=== PATIENT | female | born 1925 | race Caucasian/White ===

== ENCOUNTER 2016-04-25 12:01 | Inpatient (IN) | payer MEDICARE, OTHER ==
[2016-04-25] MEDS ORDERED: DEXTROSE 50%-WATER 25 GM/50 ML DISP.SYRIN IV ONE (12:28)
[2016-04-25 12:46] LABS: HEMATOCRIT 35.4 % (36.0-47.0); HGB HCT DIFFERENCE 0.6; MEAN CORPUSCULAR VOLUME 85 fl (80-97); RED BLOOD COUNT 4.15 10^6/uL (3.72-5.28); RED CELL DISTRIBUTION WIDTH 13.8 % (11.5-14.0); WHITE BLOOD COUNT 6.5 10^3/uL (4.0-10.5)
[2016-04-25 13:07] LABS: ALANINE AMINOTRANSFERASE 28 U/L (9-52); ALBUMIN 3.4 g/dL (3.5-5.0); ALKALINE PHOSPHATASE 57 U/L (38-126); ANION GAP 12 (5-19); ASPARTATE AMINO TRANSFERASE 22 U/L (14-36); BILIRUBIN,TOTAL 0.6 mg/dL (0.2-1.3); BLOOD UREA NITROGEN 9 mg/dL (7-20); CARBON DIOXIDE 28 mmol/L (22-30); CHLORIDE 99 mmol/L (98-107); CREATINE KINASE 21 U/L (30-135); CREATININE RESULT 0.56 mg/dL (0.52-1.25); GLUCOSE 49 mg/dL (75-110); POTASSIUM 3.2 mmol/L (3.6-5.0); SODIUM 138.7 mmol/L (137-145); TOTAL PROTEIN 6.2 g/dL (6.3-8.2)
[2016-04-25 13:08] LABS: BASOPHILS % (MANUAL) 0 % (0-2); EOSINOPHILS % (MANUAL) 1 % (0-6); LYMPHOCYTES % (MANUAL) 3 % (13-45); TOTAL CELLS COUNTED 100
[2016-04-25 13:10] LABS: POLYCHROMASIA SLIGHT; TOXIC GRANULATION 1+; TOXIC VACUOLATION PRESENT
[2016-04-25 13:11] LABS: BAND NEUTROPHILS % (MANUAL) 13 % (3-5)
[2016-04-25 13:25] LABS: TROPONIN I < 0.012 ng/mL
[2016-04-25] MEDS ORDERED: NORMAL SALINE 1000 ML 1,000 ML IV ONE ×2 (14:10)
--- NOTE | 2016-04-25 14:10 | ER Document Report ---
ED General - General Chief Complaint: Low Blood Sugar Stated Complaint: ALTERED MENTAL STATUS Mode of Arrival: Ambulatory Information source: Patient, Relative, Emergency Med Personnel Notes: 89 yr ood paco with hx of diabetes and dementia presents with concerns of hypoglycemi,a pt found by family at 23 this morning, dropped to 10 by the time EMS evaluated, pt given amp dextrose , went ot 110 and then droppped to 60s i [facility] ED. pt has not been eating at all over the past 1 month per family. notes to have abd distension over the past 2 weeks , seen before for this concern, - HPI Onset: Just prior to arrival Onset/Duration: Sudden Quality of pain: Cramping Severity: Mild Pain Level: 1 Associated symptoms: Diarrhea, Nausea, Vomiting - pt vomtiied mutliple times otday Past Medical History - Social History Smoking Status: Never Smoker Cigarette use (# per day): No Chew tobacco use (# tins/day): No Smoking Education Provided: No Family History: Reviewed & Not Pertinent - Past Medical History Cardiac Medical History: Reports: Hx Hypercholesterolemia Pulmonary Medical History: Reports: Hx COPD Endocrine Medical History: Reports: Hx Diabetes Mellitus Type 1 Surgical Hx: Negative Physical Exam - Vital signs Vitals: Temp Pulse Resp BP Pulse Ox 100.2 F 89 18 118/40 L 94 04/25/16 12:10 04/25/16 12:10 04/25/16 12:10 04/25/16 12:10 04/25/16 12:10 Course - Re-evaluation Re-evalutation: 04/25/16 15:49 Initial concern is obviously for hypoglycemia, but appears to be secondary to decreased appetite and significant vomiting, patient after receiving D50 , initial x-ray was concerning for obstruction which would be consistent with the patient's vomiting and abdominal distention did have an NG tube placed. 04/25/16 15:50 Repeat x-ray pending at this time patient will be admitted to hospitalist service with surgical consult was already at bedside - Vital Signs Vital signs: Temp Pulse Resp BP Pulse Ox 100.2 F 89 18 118/40 L 94 04/25/16 12:10 04/25/16 12:10 04/25/16 12:10 04/25/16 12:10 04/25/16 12:10 - Laboratory Result Diagrams: 04/25/16 12:33 04/25/16 12:33 Laboratory results interpreted by me: 04/25/16 04/25/16 04/25/16 12:19 12:33 12:33 Hct 35.4 L Plt Count 642 H Band Neutrophils % 13 H Lymphocytes % (Manual) 3 L Abs Lymphs (Manual) 0.3 L Potassium 3.2 L Glucose 49 L POC Glucose 66 L Lactic Acid Creatine Kinase 21 L Total Protein 6.2 L Albumin 3.4 L Urine Glucose (UA) Urine Ketones Ur Leukocyte Esterase 04/25/16 04/25/16 04/25/16 12:57 13:48 13:55 Hct Plt Count Band Neutrophils % Lymphocytes % (Manual) Abs Lymphs (Manual) Potassium Glucose POC Glucose 359 H Lactic Acid 3.0 H Creatine Kinase Total Protein Albumin Urine Glucose (UA) >=500 H Urine Ketones TRACE H Ur Leukocyte Esterase TRACE H - Diagnostic Test Radiology reviewed: Image reviewed, Reports reviewed Critical Care Note - Critical Care Note Total time excluding time spent on procedures (mins): 37 Comments: 37 minutes of critical care time spent in direct contact evaluating and reevaluating the patient, treating symptoms, reviewing labs and studies and speaking with family and consultants excluding any procedures Discharge - Discharge Clinical Impression: Partial obstruction of small intestine, Severe diabetic hypoglycemia Abdominal pain Qualifiers: Abdominal location: generalized Qualified Code(s): R10.84 - Generalized abdominal pain Condition: Stable Disposition: ADMITTED INPATIENT Admitting Provider: Hospitalist Unit Admitted: Telemetry Referrals: RADHA GARCIA MD [Primary Care Provider] - Follow up as needed
[2016-04-25 14:22] LABS: APPEARANCE,URINE CLEAR; BILIRUBIN,URINE NEGATIVE (NEGATIVE); GLUCOSE, URINE >=500 mg/dL (NEGATIVE); KETONES,URINE TRACE mg/dL (NEGATIVE); LEUKOCYTE ESTERASE,URINE TRACE (NEGATIVE); NITRITE,URINE NEGATIVE (NEGATIVE); PROTEIN,URINE NEGATIVE (NEGATIVE); UROBILINOGEN,URINE NEGATIVE mg/dL (<2.0)
[2016-04-25] MEDS ORDERED: ERTAPENEM SODIUM INJ 1 GM VIAL IV ONE (16:27)
[2016-04-25] MEDS ORDERED: DEXTROSE 5%-1/2 NORMAL SALINE 1,000 ML IV PRN (16:30)
[2016-04-25] MEDS ORDERED: ACETAMINOPHEN 650 MG SUPP.RECT PR PRN (16:34)
[2016-04-25] MEDS ORDERED: MORPHINE SULFATE 10 MG/ML INJ IV PRN ×2 (16:40→21:29)
[2016-04-25] MEDS ORDERED: DEXTROSE 50%-WATER 25 GM/50 ML DISP.SYRIN IV PRN ×2 (16:41)
[2016-04-25] MEDS ORDERED: DEXTROSE 40% GEL 15 GM TUBE PO PRN ×2 (16:41)
[2016-04-25] MEDS ORDERED: GLUCAGON,HUMAN RECOMB 1 MG INJ IM PRN (16:41)
[2016-04-25] MEDS ORDERED: PHENOL/SODIUM PHENOLATE 100 SPRAY/177 ML BOTTLE PO PRN (16:41)
[2016-04-25] MEDS ORDERED: NORMAL SALINE 1000 ML 2,000 ML IV ONE (17:30)
[2016-04-25] MEDS: ONDANSETRON HCL INJ/PF 4 MG/2 ML SDV IV PRN (19:31)
[2016-04-25] MEDS ORDERED: IPRATROPIUM/ALBUTEROL 0.5-2.5 MG/3 ML AMPUL NEB PRN (19:32)
--- NOTE | 2016-04-25 19:52 | PDOC H&P ---
History of Present Illness Admission Date/PCP: 04/25/16 16:34 RADHA GARCIA History of Present Illness: AFSANEH BYNUM is a 89 year old female with a history of diabetes mellitus and dementia who is accompanied by her to the emergency department. Patient was brought in for low blood sugar and was found to have a blood sugar in the 20s which responded to dextrose but then promptly dropped. Patient has apparently not been eating well over the past month. Patient has also been per her vomiting everything that she's eaten. She was hospitalized in [place] for 8 or 9 days he reports for small bowel obstruction. He reports after going home she still had a fever of up to 102, nausea vomiting, and unable to take by mouth. Patient's continued to give her her normal insulin. Patient's also reports that her stools have been black until a couple of days ago and are now a brown liquid. He is unable to provide me much more in the way of history. Patient is referred to the hospitalist service for sepsis. Past Medical History Cardiac Medical History: Reports: Hyperlipidema Pulmonary Medical History: Reports: Chronic Obstructive Pulmonary Disease (COPD) Endocrine Medical History: Reports: Diabetes Mellitus Type 1 Hematology: Reports: Anemia Past Surgical History Past Surgical History: Reports: Cholecystectomy, Hysterectomy Social History Smoking Status: Never Smoker Last Time Smoked: patient does not smoke she does dip socially per family Frequency of Alcohol Use: None Hx Recreational Drug Use: No Hx Prescription Drug Abuse: No - Advance Directive Resuscitation Status: Do Not Resuscitate Surrogate healthcare decision maker:: , HARSH Bynum Family History Family History: Malignancy Parental Family History Reviewed: Yes Children Family History Reviewed: Yes Sibling(s) Family History Reviewed.: Yes Medication/Allergy Home Medications: Atorvastatin Calcium [Lipitor 40 mg Tablet] 40 mg PO QHS 04/25/16 Ferrous Sulfate [Iron] 325 mg PO BID 04/25/16 Fluticasone/Salmeterol [Advair 250-50 Diskus 28 dose] 1 inh IH Q12 04/25/16 Hum Insulin NPH/Reg Insulin Hm [Novolin 70-30 100 Unit/Ml Vial] 28 unit SQ QPM 04/25/16 Hum Insulin NPH/Reg Insulin Hm [Novolin 70-30 100 Unit/Ml Vial] 42 unit SQ QAM 04/25/16 Latanoprost [Xalatan 0.005% Oph Soln 2.5 ml] 1 drop OU QHS 04/25/16 Meclizine HCl [Antivert 25 mg Tablet] 25 mg PO QIDP PRN 04/25/16 Verapamil HCl [Verapamil ER] 120 mg PO DAILY 04/25/16 Zafirlukast [Accolate 20 mg Tablet] 20 mg PO BID 04/25/16 Allergies/Adverse Reactions: aspirin Allergy (Verified 04/25/16 17:08) codeine Allergy (Verified 04/25/16 17:08) metformin Allergy (Verified 04/25/16 17:08) Penicillins Allergy (Verified 04/25/16 17:08) Sulfa (Sulfonamide Antibiotics) Allergy (Verified 04/25/16 17:08) Review of Systems Constitutional: PRESENT: anorexia, chills, fatigue, fever(s), night sweats, weakness, weight loss. ABSENT: headache(s), weight gain Eyes: ABSENT: visual disturbances Ears: ABSENT: hearing changes Cardiovascular: ABSENT: chest pain, dyspnea on exertion, edema, orthropnea, palpitations Respiratory: ABSENT: cough, dyspnea, hemoptysis, sputum Gastrointestinal: PRESENT: abdominal pain, diarrhea, melena, nausea, vomiting. ABSENT: constipation, heartburn, hematemesis, hematochezia Genitourinary: ABSENT: dysuria, hematuria Musculoskeletal: ABSENT: joint swelling Integumentary: ABSENT: rash, wounds Neurological: PRESENT: confusion. ABSENT: abnormal gait, abnormal speech, dizziness, focal weakness, syncope Psychiatric: ABSENT: anxiety, depression, homidical ideation, suicidal ideation Endocrine: ABSENT: cold intolerance, heat intolerance, polydipsia, polyuria Hematologic/Lymphatic: ABSENT: easy bleeding, easy bruising Physical Exam Vital Signs: Temp Pulse Resp BP Pulse Ox 100.2 F 89 20 129/37 H 95 04/25/16 18:44 04/25/16 12:10 04/25/16 19:01 04/25/16 19:01 04/25/16 19:01 General appearance: PRESENT: mild distress, thin, well-developed, other - Acutely ill-appearing Head exam: PRESENT: atraumatic, normocephalic Eye exam: PRESENT: conjunctiva pink, EOMI, PERRLA. ABSENT: conjunctival injection, scleral icterus Ear exam: PRESENT: normal external ear exam Mouth exam: PRESENT: dry mucosa, tongue midline Neck exam: ABSENT: JVD, lymphadenopathy, thyromegaly, tracheal deviation Respiratory exam: PRESENT: clear to auscultation devyn, unlabored. ABSENT: accessory muscle use, crackles, prolonged expiratory phas, rales, rhonchi, symmetrical, tachypnea, wheezes Cardiovascular exam: PRESENT: RRR, +S1, +S2. ABSENT: diastolic murmur, rubs, systolic murmur Pulses: PRESENT: normal dorsalis pedis pul Vascular exam: PRESENT: normal capillary refill GI/Abdominal exam: PRESENT: diminished bowel sounds, distended, soft, tenderness - Diffuse. ABSENT: firm, guarding, hernia, mass, organolmegaly, rebound, rigid Rectal exam: PRESENT: deferred Extremities exam: PRESENT: full ROM. ABSENT: calf tenderness, clubbing, pedal edema Neurological exam: PRESENT: alert, awake, oriented to person, CN II-XII grossly intact. ABSENT: oriented to place, oriented to time, oriented to situation, motor sensory deficit Psychiatric exam: PRESENT: appropriate affect, normal mood, other - Confused. ABSENT: homicidal ideation, suicidal ideation Skin exam: PRESENT: dry, intact, pallor, warm. ABSENT: cyanosis, rash Results Impressions: Abdomen/Pelvis CT 04/25/16 00:00 IMPRESSION: Small bowel obstruction which appears due to a 5 cm segment of partially intussuscepted distal ileum, seen best on images number 50 through 60. No free air. Nasogastric catheter tip projects over the mid body of the stomach. KUB X-Ray 04/25/16 15:50 IMPRESSION: Status post NG tube placement. There is slightly more small-bowel distention especially in the left mid abdomen. Assessment & Plan - Diagnosis (1) Sepsis Qualifiers: Sepsis type: sepsis due to unspecified organism Qualified Code(s): A41.9 - Sepsis, unspecified organism Is this a current diagnosis for this admission?: YesPlan: We'll place patient on ertapenem to cover intra-abdominal pathogens. Patient qualifies for severe sepsis with her elevated lactate, tachypnea, tachycardia, and bandemia. Blood and urine cultures have been obtained (2) Small bowel obstruction Is this a current diagnosis for this admission?: YesPlan: Pending CAT scan at this time. NG tube has been placed. Surgery has been consulted. Have discussed the idea of anticoagulation with surgery and at this time we will put this on hold due to possible need for emergent surgery. Concerning considering at this time mesenteric ischemia, volvulus, intussusception, mass, lymphoma, mesenteric thrombosis. (3) Diabetes mellitus Qualifiers: Diabetes mellitus type: type 1 Diabetes mellitus complication status: with other specified complication Qualified Code(s): E10.69 - Type 1 diabetes mellitus with other specified complication Is this a current diagnosis for this admission?: YesPlan: Patient currently hypoglycemic likely secondary to ongoing use of insulin despite being unable to take in oral. Will place patient on D5 fluids and every 6 Accu-Cheks. (4) Hyperlipidemia Qualifiers: Hyperlipidemia type: unspecified Qualified Code(s): E78.5 - Hyperlipidemia, unspecified Is this a current diagnosis for this admission?: No (5) Dementia Qualifiers: Dementia type: unspecified type Dementia behavioral disturbance: without behavioral disturbance Qualified Code(s): F03.90 - Unspecified dementia without behavioral disturbance Is this a current diagnosis for this admission?: YesPlan: We'll place patient on soft restraints as her NG does need to stay in place at this time. Patient is quite demented though pleasant. Continue supportive care. (6) Severe diabetic hypoglycemia Is this a current diagnosis for this admission?: Yes - Time Time Spent: 50 to 70 Minutes Medications reviewed and adjusted accordingly: Yes - Inpatient Certification Based on my medical assessment, after consideration of the patient's comorbidities, presenting symptoms, or acuity I expect that the services needed warrant INPATIENT care.: Yes I certify that my determination is in accordance with my understanding of Medicare's requirements for reasonable and necessary INPATIENT services [42 CFR 412.3e].: Yes Medical Necessity: Need For IV Fluids, Need for Surgery, Risk of Complication if Not Cared For in Hospital, Risk of Diagnosis Which Will Require Inpatient Eval/Care/Monitoring Post Hospital Care: D/C Weld Inspector Documentation
[2016-04-25 20:07] LABS: PROTHROMBIN TIME 16.5 SEC (11.4-15.4)
[2016-04-25 20:08] LABS: PARTIAL THROMBOPLASTIN TIME 33.5 SEC (23.5-35.8)
[2016-04-25] MEDS: POTASSI CL 20 MEQ/50 ML RIDER 50 ML IV SCH (21:15)
[2016-04-25] MEDS ORDERED: PANTOPRAZOLE SODIUM 40 MG VIAL IV SCH (22:00)
[2016-04-25] MEDS ORDERED: LATANOPROST 0.005% OPH SOLN 2.5 ML OU SCH (22:00)
[2016-04-25] MEDS ORDERED: FLUTICASONE/SALMETEROL DISKUS 250-50 MCG/DOSE IH SCH (22:00)
[2016-04-26] MEDS: ONDANSETRON HCL INJ/PF 4 MG/2 ML SDV IV PRN (00:42)
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
[2016-04-26] MEDS: POTASSI CL 20 MEQ/50 ML RIDER 50 ML IV SCH (01:25)
[2016-04-26] MEDS: HEPARIN SOD (PORCINE) 5,000 UNIT/ML 1 ML SYRINGE SUBCUT SCH ×2 (04:54→06:55)
[2016-04-26] MEDS: HALOPERIDOL LACTATE INJ 5 MG/1 ML VIAL IV PRN ×2 (11:36→22:02)
[2016-04-26] MEDS: LORAZEPAM INJ 2 MG/1 ML VIAL IV PRN (13:48)
[2016-04-26] MEDS ORDERED: ERTAPENEM SODIUM 1 GM in NORMAL SALINE 50 ML IV SCH (18:00)
--- NOTE | 2016-04-26 20:00 | PDOC PROGRESS REPORT ---
Subjective Progress Note for:: 04/26/16 Subjective:: Unable to obtain review of systems from patient secondary to dementia Physical Exam Vital Signs: Temp Pulse Resp BP Pulse Ox 97.7 F 73 16 100/32 L 99 04/26/16 15:40 04/26/16 15:40 04/26/16 15:40 04/26/16 15:40 04/26/16 15:40 Intake & Output 04/25/16 04/26/16 04/27/16 06:59 06:59 06:59 Intake Total 252 Output Total 400 250 Balance -400 2 Weight 56 kg Exam: General: Awake alert and oriented to self alone, no acute respiratory distress HEENT: AT/NC, PERRL, EOMI, oropharynx is dry, pink, no scleral icterus, no conjunctival injection Neck: No JVD, trachea midline Chest: Clear to auscultation bilaterally, no wheezes rhonchi or rales CV: Regular rate and rhythm, normal S1 and S2, no murmur, rub, or gallop Abdomen: Soft, mildly tender, mildly, active bowel sounds; no rebound, rigidity , or guarding Extremities: No cyanosis, clubbing or edema Neuro: Cranial nerves II through XII are grossly intact without focal deficits; oriented only to self Psych: Normal mood and affect Results Laboratory Results: 04/25/16 19:42 Lactic Acid 1.5 Impressions: Abdomen/Pelvis CT 04/25/16 00:00 IMPRESSION: Small bowel obstruction which appears due to a 5 cm segment of partially intussuscepted distal ileum, seen best on images number 50 through 60. No free air. Nasogastric catheter tip projects over the mid body of the stomach. KUB X-Ray 04/25/16 15:50 IMPRESSION: Status post NG tube placement. There is slightly more small-bowel distention especially in the left mid abdomen. Assessment & Plan - Diagnosis (1) Sepsis Qualifiers: Sepsis type: sepsis due to unspecified organism Qualified Code(s): A41.9 - Sepsis, unspecified organism Is this a current diagnosis for this admission?: YesPlan: At this time, the family has agreed to comfort measures only. We have discussed this with them and will give patient clear liquid diet, morphine, Ativan, and Haldol. Family is quite concerned about patient falling out of bed and have requested restrains me in place. (2) Small bowel obstruction Is this a current diagnosis for this admission?: Yes (3) Diabetes mellitus Qualifiers: Diabetes mellitus type: type 1 Diabetes mellitus complication status: with other specified complication Qualified Code(s): E10.69 - Type 1 diabetes mellitus with other specified complication; E10.65 - Type 1 diabetes mellitus with hyperglycemia Is this a current diagnosis for this admission?: Yes (4) Hyperlipidemia Qualifiers: Hyperlipidemia type: unspecified Qualified Code(s): E78.5 - Hyperlipidemia, unspecified Is this a current diagnosis for this admission?: No (5) Dementia Qualifiers: Dementia type: unspecified type Dementia behavioral disturbance: without behavioral disturbance Qualified Code(s): F03.90 - Unspecified dementia without behavioral disturbance Is this a current diagnosis for this admission?: Yes (6) Severe diabetic hypoglycemia Is this a current diagnosis for this admission?: Yes - Time Time Spent with patient: 25-34 minutes Medications reviewed and adjusted accordingly: Yes Anticipated discharge: Hospice Within: when bed available
--- NOTE | 2016-04-26 21:26 | PDOC PROGRESS REPORT ---
Subjective Subjective:: reports is resting peacefully. He reports she was agitated earlier but has calmed with medications. Physical Exam Vital Signs: Temp Pulse Resp BP Pulse Ox 97.7 F 85 16 100/32 L 99 04/26/16 15:40 04/26/16 19:00 04/26/16 15:40 04/26/16 15:40 04/26/16 15:40 Intake & Output 04/25/16 04/26/16 04/27/16 06:59 06:59 06:59 Intake Total 252 Output Total 400 250 Balance -400 2 Weight 56 kg Exam: Resting peacefully. Results Impressions: Abdomen/Pelvis CT 04/25/16 00:00 IMPRESSION: Small bowel obstruction which appears due to a 5 cm segment of partially intussuscepted distal ileum, seen best on images number 50 through 60. No free air. Nasogastric catheter tip projects over the mid body of the stomach. KUB X-Ray 04/25/16 15:50 IMPRESSION: Status post NG tube placement. There is slightly more small-bowel distention especially in the left mid abdomen. Assessment & Plan - Diagnosis (1) Bowel obstruction Is this a current diagnosis for this admission?: YesPlan: Appears to be an obstructing intussusception or mass or lesion of some sort in the terminal ileum/cecal region. Poor surgical candidate. Family has opted for comfort cares. Surgery will sign off. (2) Dementia Qualifiers: Dementia type: unspecified type Dementia behavioral disturbance: without behavioral disturbance Qualified Code(s): F03.90 - Unspecified dementia without behavioral disturbance Is this a current diagnosis for this admission?: Yes (3) Diabetes mellitus Qualifiers: Diabetes mellitus type: type 1 Diabetes mellitus complication status: with other specified complication Qualified Code(s): E10.69 - Type 1 diabetes mellitus with other specified complication; E10.65 - Type 1 diabetes mellitus with hyperglycemia Is this a current diagnosis for this admission?: Yes
--- NOTE | 2016-04-27 08:49 | PDOC DISCHARGE SUMMARY ---
General - Admit/Disc Date/PCP Admission Date/Primary Care Provider: 04/25/16 16:34 RADHA GARCIA Discharge Date: 04/27/16 - Discharge Diagnosis (1) Sepsis Is this a current diagnosis for this admission?: Yes (2) Small bowel obstruction Is this a current diagnosis for this admission?: Yes (3) Diabetes mellitus Is this a current diagnosis for this admission?: Yes (4) Hyperlipidemia Is this a current diagnosis for this admission?: No (5) Dementia Is this a current diagnosis for this admission?: Yes (6) Severe diabetic hypoglycemia Is this a current diagnosis for this admission?: Yes (7) Intussusception Is this a current diagnosis for this admission?: Yes - Additional Information Resuscitation Status: Do Not Resuscitate Discharge Diet: As Tolerated Discharge Activity: Bedrest Home Medications: Atorvastatin Calcium [Lipitor 40 mg Tablet] 40 mg PO QHS 04/25/16 Ferrous Sulfate [Iron] 325 mg PO BID 04/25/16 Fluticasone/Salmeterol [Advair 250-50 Diskus 28 dose] 1 inh IH Q12 04/25/16 Hum Insulin NPH/Reg Insulin Hm [Novolin 70-30 100 Unit/Ml Vial] 28 unit SQ QPM 04/25/16 Hum Insulin NPH/Reg Insulin Hm [Novolin 70-30 100 Unit/Ml Vial] 42 unit SQ QAM 04/25/16 Latanoprost [Xalatan 0.005% Oph Soln 2.5 ml] 1 drop OU QHS 04/25/16 Meclizine HCl [Antivert 25 mg Tablet] 25 mg PO QIDP PRN 04/25/16 Verapamil HCl [Verapamil ER] 120 mg PO DAILY 04/25/16 Zafirlukast [Accolate 20 mg Tablet] 20 mg PO BID 04/25/16 History of Present Illness History of Present Illness: AFSANEH BYNUM is a 89 year old female with a history of diabetes mellitus and dementia who is accompanied by her to the emergency department. Patient was brought in for low blood sugar and was found to have a blood sugar in the 20s which responded to dextrose but then promptly dropped. Patient has apparently not been eating well over the past month. Patient has also been per her vomiting everything that she's eaten. She was hospitalized in [place] for 8 or 9 days he reports for small bowel obstruction. He reports after going home she still had a fever of up to 102, nausea vomiting, and unable to take by mouth. Patient's continued to give her her normal insulin. Patient's also reports that her stools have been black until a couple of days ago and are now a brown liquid. He is unable to provide me much more in the way of history. Patient is referred to the hospitalist service for sepsis. Hospital Course Hospital Course: Patient was found to have intusussception and surgery was consulted. Patient, being a poor surgical candidate, was made comfort measures by family for this, sepsis, and advanced dementia. Patient accepted and transferred to [facility]. Physical Exam Vital Signs: Temp Pulse Resp BP Pulse Ox 97.9 F 106 H 16 90/72 L 100 04/27/16 07:23 04/27/16 07:23 04/27/16 07:23 04/27/16 07:23 04/27/16 07:23 Intake & Output 04/26/16 04/27/16 04/28/16 06:59 06:59 06:59 Intake Total 412 Output Total 400 750 Balance -400 -338 Weight 56 kg 59.1 kg Exam: General: Awake alert and oriented to self alone, no acute respiratory distress, acutely ill appearing, pale HEENT: AT/NC, PERRL, EOMI, oropharynx is dry, pink, no scleral icterus, no conjunctival injection Neck: No JVD, trachea midline Chest: Clear to auscultation bilaterally, no wheezes rhonchi or rales CV: Regular rate and rhythm, normal S1 and S2, no murmur, rub, or gallop Abdomen: Soft, mildly tender, mildly distended, active bowel sounds; no rebound , rigidity, or guarding Extremities: No cyanosis, clubbing or edema Neuro: Cranial nerves II through XII are grossly intact without focal deficits; oriented only to self Psych: confused, but pleasant Results Impressions: Abdomen/Pelvis CT 04/25/16 00:00 IMPRESSION: Small bowel obstruction which appears due to a 5 cm segment of partially intussuscepted distal ileum, seen best on images number 50 through 60. No free air. Nasogastric catheter tip projects over the mid body of the stomach. KUB X-Ray 04/25/16 15:50 IMPRESSION: Status post NG tube placement. There is slightly more small-bowel distention especially in the left mid abdomen. Qualifiers PATEINT BEING DISCHARGED WITH ANY OF THE FOLLOWING DIAGNOSIS?: No Plan Time Spent: Less than 30 Minutes
[2016-04-27 12:03] VITALS: BP 138/64
[2016-04-27] MEDS: LORAZEPAM INJ 2 MG/1 ML VIAL IV PRN (12:39)
[2016-04-28 15:12] LABS: PATH REVIEW PATHOLOGIST REVIEWED
== END 2016-04-27 13:25 | disposition hospice, inpatient (51) | DRG 871 ==
LOC: ER 12:01 → EH 16:34 → UNDOADMIN 16:45 → 3W 22:08
PROVIDERS: ADMIT Internal Medicine; ATTEND Internal Medicine
PROC: 0D9670Z Drainage of Stomach with Drainage Device, Via Natural or Artificial Opening (ICD-10-PCS; principal; 2016-04-25)
DX: A41.9 Sepsis, unspecified organism (principal); E10.641 Type 1 diabetes mellitus with hypoglycemia with coma; K56.1 Intussusception; E78.5 Hyperlipidemia, unspecified; Z51.5 Encounter for palliative care; F03.90 Unspecified dementia, unspecified severity, without behavioral disturbance, psychotic disturbance, mood disturbance, and anxiety; J44.9 Chronic obstructive pulmonary disease, unspecified; Z66 Do not resuscitate; E10.65 Type 1 diabetes mellitus with hyperglycemia; Z72.0 Tobacco use; Z80.9 Family history of malignant neoplasm, unspecified; Z90.49 Acquired absence of other specified parts of digestive tract; Z79.4 Long term (current) use of insulin; Z88.6 Allergy status to analgesic agent; Z88.0 Allergy status to penicillin; Z88.2 Allergy status to sulfonamides; Z90.710 Acquired absence of both cervix and uterus
CPT/HCPCS: 36415; 74000; 74177; 80053; 81001; 82550; 82553; 82962; 83605; 83735; 84100; 84443; 84484; 85025; 85610; 85730; 87086; 96361; 96374; 99291; J1335; J1630; J2060; J2405; J3480; J3490; J7030